=== PATIENT | male | born 1950 | race Caucasian/White ===

== ENCOUNTER 2018-12-13 11:38 | Emergency (ER) | payer MEDICARE, SELFPAY ==
[2018-12-13 11:39] VITALS: BP 148/65; PULSE 92; RESP 17; TEMP 36.2; O2SAT 98; BMI 26.6
--- NOTE | 2018-12-13 12:05 | RAD_ITS ---
STUDY: X-RAY - LEFT HAND REASON FOR EXAM: Male, 68 years old. Laceration of the third and fourth digits. TECHNIQUE: 3 view(s) of the hand. COMPARISON: None. FINDINGS: Normal radiocarpal articulation. Normal distal radioulnar joint. Normal visualized carpal bones. Normal carpal articulations Normal carpometacarpal articulation of the thumb. Normal second through fifth carpometacarpal joints. Normal metacarpi. Normal metacarpophalangeal joint of the thumb. Normal interphalangeal joint of the thumb. Normal proximal and distal phalanges of the thumb. Normal metacarpophalangeal joints of the second through fifth fingers. Comminuted nondisplaced fracture of the distal portion of the distal pharynx of the fourth digit. Normal phalanges of the second through fifth fingers. Soft tissue laceration overlying the distal fourth digit. RAD/Hand Min 3 Views IMPRESSION: Comminuted nondisplaced fracture of the distal aspect of the distal phalanx of the fourth digit with overlying soft tissue laceration. No radiopaque foreign body is seen. Electronically Signed: Darell Mcclelland, at 12:22 EDT , Service support ,
[2018-12-13] MEDS: Cefazolin 1 GM/50 ML BAG IV (12:16)
--- NOTE | 2018-12-13 12:18 | ED.VIS.INJ ---
History of Present Illness Chief Complaint: Laceration Detail of Chief Complaint: Left index and ring finger Informant: Patient Onset: Today Mechanism/Context: Blunt Injury - Table saw injury Quality of Pain: Dull, Aching Location: Left index and ring finger Current Severity: Mild Maximum Severity: Moderate Worsened by: Movement and palpation Relieved by: Nothing Length of loss of consciousness: Not applicable Narrative: Patient is a 68-year-old [id number] male who was cutting wood to finish a desk he purchased. He went to grab the wood and cut his left index and left ring finger. He has full function. He had significant bleeding from the ring finger. He has no other complaints. Tetanus Immunization: >10 years Prior similar symptoms: No Recent Illness/Hospitalization: No - Past Medical History (1) No significant past medical history Status: Acute Past Medical History - Allergies and Home Meds Allergies/Adverse Reactions: Allergies No Known Allergies Allergy (Verified 12/13/18 11:39) Primary Care Physician: Mani Corona DO [Primary Care Provider] - Prior records reviewed: No Past Medical History: None Surgical History: noncontributory Lives: Spouse/ Significant Other Smoking Status: Never smoker Alcohol: None Drugs: None Review of Systems General: Denies: Chills, Fever, Malaise, Sweats Musculoskeletal: Reports: Extremity Pain. Denies: Myalgias, Arthralgias, Neck pain, Back pain, Swelling Neurological: Reports: Numbness. Denies: Weakness, Parasthesia Hematologic: Denies: Easy bruising, Easy bleeding Allergy: Denies: Uticaria, Swelling of the mouth Physical Exam Vital Signs/Narrative: Vital Signs Temp Pulse Resp BP Pulse Ox 12/13/18 11:39 97.1 F L 92 17 148/65 H 98 Inital Vital Signs reviewed: Yes General: Well nourished, Well developed Head: Normocephalic, Atraumatic Eyes: Perrl, EOMI. Negative for: Pale conjunctiva, Scleral icterus Cardiovascular: Regular rate, Regular rhythm, No murmurs, Normal S1, Normal S2 Respiratory: No distress, CTA bilaterally Extremeties: There is a laceration to the ulnar side of the left index finger distal to the DIP joint. Two-point discrimination is abnormal. The extensor indicies tendon is intact. The flexor digitorum superficialis and flexor digitorum profundus are intact. Capillary refill is normal. There is no injury to the nailbed. There is also an injury to the ulnar side of the left ring finger with avulsed tissue involving the nailbed and nail. Abnormal two-point semination distal of the injury. There is no subungual hematoma noted. The extensor commonness tendon and the flexor digitorum fundus and the flexor digitorum superficialis tendon are intact. Skin: Normal color, No rash, Trauma - Described under extremity portion of the physical exam. Neurological: Alert, Oriented x3, Cranial nerves II-XII grossly intact, Normal Strength. Negative for: Normal Sensation Psychological: Normal affect, Normal Mood - Glascow Coma Scale Eye Opening: Spontaneous Motor: Obeys Commands Verbal: Oriented Coma Scale Total: 15 Diagnostic/Tx/Re-eval Chest X-Ray - ED: Read by ED Physician, - - View x-ray of the left hand was obtained and there is a comminuted minimally displaced distal phalanx fracture of the left ring finger. There is also avulsed tissue noted. 12/13/18 12:05 Hand Min 3 Views [RAD] Stat - Medical Decision Making Patient received a gram of Ancef for open distal phalanx fracture. The digits were anesthetized with 1% lidocaine by digital block. A 1.5 cm laceration distal left index finger. Wound was irrigated with 100 cc of normal saline. The wound was closed using 5-0 Ethilon. Total of 3 stitches were placed. A portion of the nail was removed to expose the nailbed left ring finger. There is significant amount of tissue loss. The skin was closed using 5-0 Ethilon. One stitch was placed to approximate the nailbed and reduce space. Procedures Procedure(s): Repair of laceration and nailbed left index and left ring finger respectively. Procedure was previously described. Patient was referred to Dr. Nigel Daniels for follow-up. ED Disposition - Plan for ED Patient: Diagnosis: Open fracture of distal phalanx of left hand, Laceration of index finger of left hand without complication Instructions: LACERATION, Hand, FRACTURE, Finger (Open) Prescriptions: Cephalexin [Keflex] 500 mg PO 4X/DAY #14 cap Prescription Printed Referrals: aMni Corona DO [Primary Care Provider] - Danny Daniels MD [STAFF PHYSICIAN] - 2 Days for wound check
[2018-12-13] MEDS: Diphth,Pertuss(Acell),Tet Vac 0.5 ML Vial IM (12:39)
[2018-12-13 14:46] VITALS: BP 155/90; PULSE 81; RESP 17
== END 2018-12-13 14:47 | disposition home or self-care (01) ==
PROVIDERS: Emergency Provider Emergency Medicine; Family Provider Student in an Organized Health Care Education/Training Program; PCP Student in an Organized Health Care Education/Training Program
DX: S62.635B Displaced fracture of distal phalanx of left ring finger, initial encounter for open fracture (principal); S61.211A Laceration without foreign body of left index finger without damage to nail, initial encounter; W29.3XXA Contact with powered garden and outdoor hand tools and machinery, initial encounter; Y93.89 Activity, other specified; Y92.009 Unspecified place in unspecified non-institutional (private) residence as the place of occurrence of the external cause; Y99.8 Other external cause status
CPT/HCPCS: 11760; 12001; 73130; 90715; 96365; 96366; 99284; J7050; A4216

== ENCOUNTER 2018-12-14 12:34 | Emergency (ER) | payer MEDICARE, SELFPAY ==
[2018-12-13 11:39] VITALS: BMI 26.6
[2018-12-14 12:35] VITALS: BP 164/90; PULSE 85; RESP 18; TEMP 36.6; O2SAT 99; BMI 26.3
--- NOTE | 2018-12-14 13:04 | ED.VIS.GEN ---
History of Present Illness Chief Complaint: Wound Check Informant: Patient Onset: Yesterday Context: Gradual Onset Timing: Continuous Current Severity: Moderate Maximum Severity: Moderate Narrative: The patient presents for wound check. Patient was seen here yesterday. At that point, he had a laceration repaired of his second and fourth digit. He has been on antibiotics. He states he went to take down the dressing, but it had stuck and he started to bleed again. He states the bleeding has stopped, but he wanted to be evaluated. He denies any other medical history. Prior similar symptoms: Yes Past Medical History - Allergies and Home Meds Allergies/Adverse Reactions: Allergies No Known Allergies Allergy (Verified 12/14/18 12:37) Primary Care Physician: Mani Corona DO [Primary Care Provider] - Prior records reviewed: Yes Past Medical History: - Surgical History: noncontributory Smoking Status: Never smoker Review of Systems General: Denies: Chills, Fever, Sweats Eyes: Denies: Visual changes - bilaterally, Diplopia ENT: Denies: Rhinorrhea, Sore throat Cardiovascular: Denies: Chest pain, Palpitations Respiratory: Denies: Dyspnea, Cough, Dyspnea on exertion Gastrointestinal: Denies: Abdominal pain, Nausea, Vomiting, Diarrhea, Melena, Hematochezia Genitourinary: Denies: Dysuria, Hematuria, Frequency Musculoskeletal: Denies: Back pain, Extremity Pain Skin: Denies: Rash, Wounds Neurological: Denies: Headache, Weakness, Numbness Physical Exam Vital Signs/Narrative: Vital Signs Temp Pulse Resp BP Pulse Ox 12/14/18 12:35 97.9 F 85 18 164/90 H 99 Inital Vital Signs reviewed: Yes General: Well nourished, Well developed, No Acute Distress Head: Normocephalic, Atraumatic Eyes: Perrl, EOMI ENT: Moist mucous membranes, No rhinorrhea Neck: Supple, Nontender Cardiovascular: Regular rate, Regular rhythm, No murmurs Respiratory: No distress, CTA bilaterally, Chest nontender Abdomen: Soft, Nontender, Nondistended, Normal bowel sounds Back: Nontender, Normal Inspection Extremities: Nontender, No edema, - - The wounds are well approximated. There is no active bleeding. They were cleaned and dressed. Skin: Normal color, No rash Neurological: Alert, Oriented x3, Cranial nerves II-XII grossly intact, Normal Strength, Normal Sensation Psychological: Normal affect, Normal Mood Diagnostic/Tx/Re-eval - Medical Decision Making The patient's wounds are well-appearing. There is no active bleeding. They are cleaned and dressed. He was counseled on continuing local wound care. He will be discharged home. Impression 1. Wound check ED Disposition - Plan for ED Patient: Instructions: POST OP WOUND CHECK, Bleeding Referrals: Mani Corona DO [Primary Care Provider] -
== END 2018-12-14 13:28 | disposition home or self-care (01) ==
LOC: ED 13:16
PROVIDERS: Emergency Provider Emergency Medicine; Family Provider Student in an Organized Health Care Education/Training Program; PCP Student in an Organized Health Care Education/Training Program
DX: S61.218D Laceration without foreign body of other finger without damage to nail, subsequent encounter (principal); Z48.00 Encounter for change or removal of nonsurgical wound dressing; W45.8XXD Other foreign body or object entering through skin, subsequent encounter
CPT/HCPCS: 99282

== ENCOUNTER 2023-09-28 19:13 | Emergency (ER) | payer MEDICARE, SELFPAY ==
[2023-09-28 19:15] VITALS: BP 151/77; PULSE 55; RESP 16; TEMP 36.7; O2SAT 98; BMI 25.7
--- NOTE | 2023-09-28 19:50 | EX.ED.GENINJ ---
HPI History of Present Illness Chief Complaint: Head Injury [facility] Medical History (Updated 09/28/23 @ 19:38 by Amna King) Vitamin D deficiency PAD (peripheral artery disease) Primary osteoarthritis Mood change Loose stools Situational depression Fatigue Short-term memory loss Spasm of lumbar paraspinous muscle Dyslipidemia Special screening for malignant neoplasm of colon Impaired fasting blood sugar Pure hypercholesterolemia Hypokalemia High grade prostatic intraepithelial neoplasia Elevated PSA BPH (benign prostatic hyperplasia) Trigger finger Hyperlipidemia Hypertension Alzheimer disease Home Medications ?Medication ?Instructions ?Recorded ?Last Taken ?Type Potassium Chloride 50 meq PO DAILY 12/13/18 Unknown History amlodipine 10 mg tablet 10 mg PO DAILY 12/13/18 Unknown History aspirin 81 mg tablet,delayed 81 mg PO DAILY 12/13/18 Unknown History release atorvastatin 10 mg tablet 10 mg PO DAILY 12/13/18 Unknown History losartan 100 1 tab PO QHS 12/13/18 Unknown History mg-hydrochlorothiazide 25 mg tablet donepezil 10 mg tablet 10 mg PO DAILY 09/28/23 Unknown History memantine 7 mg capsule 7 mg PO DAILY 09/28/23 Unknown History sprinkle,extended release 24hr potassium chloride 10 mEq 10 meq PO DAILY 09/28/23 Unknown History tablet,extended release potassium chloride 20 mEq 20 meq PO BID 09/28/23 Unknown History tablet,extended release(part/cryst) sertraline 100 mg tablet 100 mg PO DAILY 09/28/23 Unknown History Allergy/AdvReac Type Severity Reaction Status Date / Time No Known Allergies Allergy Verified 09/28/23 19:17 Social History Smoking Status: Never smoker EXAM Physical Exam Const Vital Signs: 09/28/23 19:15 09/28/23 19:39 09/28/23 22:06 Temperature 98.1 F 98.0 F Temperature Source Temporal Pulse Rate 55 L 65 Respiratory Rate 16 18 Respiratory Effort Normal Non-Labored Respiratory Depth Normal Respiratory Pattern Normal Blood Pressure 151/77 H 146/90 H Blood Pressure Mean 101 108 Pulse Ox 98 97 Oxygen Delivery Method Room Air Room Air MDM MDM MDM Narrative Medical decision making narrative: HISTORY OF PRESENT ILLNESS: 73-year-old male presents with fall and mild laceration to forehead. He states he was taking a shower when he turned around and his head collided with a soap dish prior to arrival. Notes no loss of conscious or vomiting. Notes he presented for evaluation secondary to his 's concern. Denies any focal numbness weakness or loss of sensation. Denies taking blood thinners. Denies any other injuries or falls. REVIEW OF SYSTEMS: Pertinent positives: Laceration, head injury Pertinent negatives: Vomiting, loss of consciousness PHYSICAL EXAM: Nursing triage notes reviewed, Vital signs reviewed Primary Survey Airway: Intact Breathing: Bilateral breath sounds Circulation: Palpable bilateral femorals, Palpable bilateral radial, Palpable bilateral DP and Palpable bilateral PT Disability / Spine precautions GCS Score: Eye Openin Verbal Response: 5 Motor Response: 6 Secondary Survey Constitutional: Please see MDM Head: Small bruise noted to the midline of the frontal bone midface stable, NO jaw malocclusion, No Cephalohematoma, and No Lacerations noted Eye: Pupils equal round and reactive to light, Extraocular muscles intact and No periorbital ecchymosis or stepoff, no evidence of entrapment ENT: Oropharynx clear, no lacerations, no hemotympanum, no raccoon eyes or apple sign Cervical spine / Neck: No cervical spine bony tenderness, crepitance, or stepoff deformity Trachea midline Lungs: Clear to auscultation, No asymmetric rise and No crepitus, no flail chest Cardiac: Regular rate and rhythm and No murmurs Abdomen: Soft, Nontender and No rebound Pelvis: Pelvis stable to compression : No evidence of genital injury Back: No midline bony tenderness to thoracic/lumbar/sacral spines Neuro: At baseline, intact strength and sensation in bilateral upper and lower extremities. 2+ patellar reflexes bilaterally. Extremities: NO gross Deformities Psych: Normal affect Nursing triage notes reviewed, Vital signs reviewed MEDICAL DECISION MAKING: Chief Complaint: Head injury, laceration External records reviewed: Imaging reviewed: There is advanced imaging of the head Factors affecting care: Peripheral artery disease, hyperlipidemia, hypertension, Alzheimer disease [facility] Narrative: Patient was hemodynamically stable, afebrile and nontoxic-appearing. Exam with small bruise noted to the head. There were no focal neurologic deficits. I considered the following differential diagnosis: ICH, concussion ALL IMAGES (IF OBTAINED) HAVE BEEN PERSONALLY REVIEWED AND INTERPRETED BY MYSELF. CT scan head was negative. Repeat trauma exam revealed no new injuries. Patient is appropriate discharge home. Concussion precautions were given. Strict return precautions were discussed. Follow-up arranged. The patient and/or family, caregivers express understanding. The patient and/or family, caregivers agrees with the plan. Shared decision making: I will have a discussion with the patient and or visitors regarding risk/benefits of further testing or admission. They will be made aware of of the risk/benefits inherent in this decision they will be given the opportunity to voice understanding. Total critical care time today provided was at least 0 minutes. This excludes separately billable procedures. Critical care time (if documented) is secondary to the patient having high probability of clinically significant/life threatening deterioration in the patient's condition which required my urgent intervention. Impression: 1. Closed head injury 2. Concussion Dispo: Discharge home This note was generated with [employer] dictation software. It may contain incorrect words, spelling, and punctuation that were not noted in review of the chart prior to signing. Radiography Diagnostic Testing: Clinical Impression(s) from Imaging Studies Brain CT 09/28/23 20:01 IMPRESSION: 1. Mild mid to left of midline frontal soft tissue swelling noted. No demonstrated fracture or pneumocephalus or subdural hemorrhage. 2. Chronic involutional changes of the brain. Electronically Signed: Gurdeep Mazariegos MD at 20:39 EDT Reading Location ID and State: [facility] / [place] , Service support , Discharge Plan Triage Chief Complaint: Head Injury ED Provider: [facility] Dx/Rx/DC Orders Instructions: ED Concussion Prescriptions: No Action atorvastatin 10 MG tablet 10 mg PO DAILY aspirin 81 MG tablet,delayed release (DR/EC) 81 mg PO DAILY losartan-hydrochlorothiazide 1 EACH tablet 1 tab PO QHS amlodipine 10 MG tablet 10 mg PO DAILY Potassium Chloride 20 MEQ Tab.Er.Prt 50 meq PO DAILY Patient Comments: pt takes 2 20 meq and 1 10 meq to make 50 meq total donepezil 10 mg tablet 10 mg PO DAILY sertraline 100 mg tablet 100 mg PO DAILY potassium chloride 10 mEq tablet extended release 10 meq PO DAILY potassium chloride 20 mEq tablet,ER particles/crystals 20 meq PO BID memantine 7 mg capsule,sprinkle,ER 24hr 7 mg PO DAILY Primary Care Provider: Mani Corona Referrals: Mani Corona DO [Primary Care Provider] - Activity Restrictions/Additional Instructions: Thank you for trusting us with your care today! The CT scan of your brain was negative for acute intracranial pathology such as bleeding in the brain. Please take Tylenol (2 pills, 650 mg), ibuprofen (2 pills, 400 mg) every 6 hours as needed for pain and fever control. Please return to the emergency department if your symptoms change or worsen. Specifically develop severe headache, vomiting, if you lose consciousness about loss of movement or sensation in your arms and legs. Please follow with your primary care physician for further outpatient evaluation and management. Print Language: Ukrainian Disposition Disposition: Home, Self Care Discharge Date/Time: 09/28/23 22:07
--- NOTE | 2023-09-28 20:01 | CT_ITS ---
STUDY: CT BRAIN WITHOUT CONTRAST REASON FOR EXAM: Male, 73 years old. hit head on shower, lac on forehead, hx htn RADIATION DOSAGE (If Supplied By Facility): CTDIvol = ( 44.99 ) mGy, DLP = ( 812.98 ) mGycm TECHNIQUE: Transaxial CT imaging of the brain was performed without administration of intravenous contrast material. Individualized dose optimization techniques were used for this CT. COMPARISON: None. FINDINGS: Mild mid to left of midline frontal soft tissue swelling noted. No demonstrated fracture or pneumocephalus or subdural hemorrhage. Normal calvarium. There is mild cerebral atrophy with widening of the extra-axial spaces and ventricular dilatation. There are areas of decreased attenuation within the white matter tracts of the supratentorial brain, consistent with microvascular disease changes. Normal basal ganglia and thalami. Normal brainstem. Normal cerebellum. There is no intracranial hemorrhage. There are no findings of an acute ischemic infarction. Moderate-sized left maxillary mucus retention cyst noted. CT/Brain/Head without Contrast IMPRESSION: 1. Mild mid to left of midline frontal soft tissue swelling noted. No demonstrated fracture or pneumocephalus or subdural hemorrhage. 2. Chronic involutional changes of the brain. Electronically Signed: Gurdeep Mazariegos MD at 20:39 EDT ,
[2023-09-28 22:06] VITALS: BP 146/90; PULSE 65; RESP 18; TEMP 36.7; O2SAT 97
== END 2023-09-28 22:07 | disposition home or self-care (01) ==
PROVIDERS: Emergency Provider Emergency Medicine; PCP Student in an Organized Health Care Education/Training Program; Visit Provider Emergency Medicine
DX: S06.0X0A Concussion without loss of consciousness, initial encounter (principal); G30.9 Alzheimer's disease, unspecified; E78.00 Pure hypercholesterolemia, unspecified; I73.9 Peripheral vascular disease, unspecified; I10 Essential (primary) hypertension; Z79.899 Other long term (current) drug therapy; W18.2XXA Fall in (into) shower or empty bathtub, initial encounter
CPT/HCPCS: 70450; 99282

== ENCOUNTER 2024-03-03 11:08 | Emergency (ER) | payer MEDICARE, SELFPAY ==
[2024-03-03 11:08] VITALS: BP 147/69; PULSE 66; RESP 16; TEMP 37.1; O2SAT 98; BMI 25.9
--- NOTE | 2024-03-03 11:40 | CT_ITS ---
INDICATION: Trauma EXAMINATION: CT BRAIN - CT Head or Brain W/O Contrast Injection TECHNIQUE: Multiple axial images were obtained of the head without intravenous contrast. The protocol utilizes one or more of the following dose reduction techniques: automated exposure control, adjustment of mA and/or kV according to patient size,and/or use of iterative reconstruction technique. IV Contrast dosage and agent: None. RADIATION DOSAGE (If Supplied By Facility): CTDIvol = ( 44.99 ) mGy, DLP = ( 846.73 ) mGycm COMPARISON: No relevant prior comparison study available FINDINGS: BRAIN PARENCHYMA: No intra- or extra-axial hemorrhage. No evidence of acute infarct. No intracranial mass or mass effect. There is preservation of the bey/white matter interface. Posterior fossa structures are unremarkable. CSF SPACES: Appropriate for age. No hydrocephalus. Basal cisterns are patent. CALVARIUM, SKULL BASE, PARANASAL SINUSES AND MASTOID AIR CELLS: There are air-fluid levels within the visualized maxillary sinuses consistent with a history of sinusitis. No discrete lytic or blastic abnormalities. There is a subcutaneous hematoma overlying the left posterior calvarium. ORBITS: Both globes, extraocular muscles, optic nerves and retrobulbar fat appear unremarkable. ASPECTS Score for Acute Strokes: 10 CT/Brain/Head without Contrast IMPRESSION: No acute intracranial process. Partial opacification of the visualized maxillary sinuses consistent with a history of sinusitis. Subcutaneous hematoma overlying the left posterior calvarium. Electronically Signed: Ethel Del Rio MD at 12:28 EST ,
--- NOTE | 2024-03-03 11:40 | CT_ITS ---
INDICATION: Trauma EXAMINATION: CT CERVICAL SPINE - CT Spine Cervical W/O Contrast Injection TECHNIQUE: Helically acquired images were obtained of the cervical spine. 2D reformatted images were reviewed. The protocol utilizes one or more of the following dose reduction techniques: automated exposure control, adjustment of mA and/or kV according to patient size,and/or use of iterative reconstruction technique. IV Contrast dosage and agent: None. RADIATION DOSAGE (If Supplied By Facility): CTDIvol = ( 24.34 ) mGy, DLP = ( 515.20 ) mGycm COMPARISON: No relevant prior comparison study available FINDINGS: VERTEBRAE: No fracture or traumatic subluxation. No discrete lytic or blastic abnormality. There is multilevel endplate spondylosis and facet hypertrophy. Normal craniocervical junction and cervicothoracic junction. DISCS and SPINAL CANAL: There is multilevel degenerative disc disease. No critical stenosis. NECK SOFT TISSUES: No prevertebral soft tissue swelling. There is no cervical adenopathy. LUNG APICES: Clear. CT/Spine Cervical without Contras IMPRESSION: Multilevel degenerative changes. Electronically Signed: Ethel Del Rio MD at 12:31 EST ,
--- NOTE | 2024-03-03 11:49 | EX.ED.GENINJ ---
HPI History of Present Illness Chief Complaint: Head Injury Narrative Narrative: Chief complaint and HPI: Closed head injury. 73-year-old male with past medical history of HTN, early dementia, HLD presents for evaluation of close head injury after mechanical fall down the steps in his basement. He hit the back of his head on wood steps. Large hematoma to the left posterior scalp. No LOC. Not on blood thinners. Patient was able to ambulate after the fall. He denies any headache, vision changes, facial patient pain, neck pain, shortness of breath, chest pain, abdominal pain, nausea, vomiting, dysuria. Unknown if up-to-date on tetanus. Review of systems: See HPI Medications: As listed on the chart Allergies: As listed on the chart PFSH: Per chart Vital signs: As listed on the chart. Reviewed. Physical exam: Gen: A&O x3, NAD Head: Normocephalic, large hematoma to the left posterior scalp with abrasion-no laceration that needs repaired Eyes: No sclera icterus, conjunctiva clear, PERRL, EOMI ENT: TMs clear BL, moist mucous membranes, no swelling/lacerations/blood in the mouth or the nares, No nasal septal hematoma, no facial tenderness Neck: Trachea midline, No JVD, Nontender CV: RRR, no murmurs, no chest wall TTP Resp: Lungs CTA BL, no w/r/c GI: Abd soft, non-distended, non-tender, no r/r/g Musc: Full ROM, no deformity, no spinal TTP, no espinoza step-offs Skin: Warm, dry, intact Neuro: Alert, oriented, grossly intact, sensation intact, GCS 15 Psych: Cooperative, appropriate mood and affect [facility] Medical History (Updated 09/28/23 @ 19:38 by Amna King) Vitamin D deficiency PAD (peripheral artery disease) Primary osteoarthritis Mood change Loose stools Situational depression Fatigue Short-term memory loss Spasm of lumbar paraspinous muscle Dyslipidemia Special screening for malignant neoplasm of colon Impaired fasting blood sugar Pure hypercholesterolemia Hypokalemia High grade prostatic intraepithelial neoplasia Elevated PSA BPH (benign prostatic hyperplasia) Trigger finger Hyperlipidemia Hypertension Alzheimer disease Home Medications ?Medication ?Instructions ?Recorded ?Last Taken ?Type Potassium Chloride 50 meq PO DAILY 12/13/18 Unknown History amlodipine 10 mg tablet 10 mg PO DAILY 12/13/18 Unknown History aspirin 81 mg tablet,delayed 81 mg PO DAILY 12/13/18 Unknown History release atorvastatin 10 mg tablet 10 mg PO DAILY 12/13/18 Unknown History losartan 100 1 tab PO QHS 12/13/18 Unknown History mg-hydrochlorothiazide 25 mg tablet donepezil 10 mg tablet 10 mg PO DAILY 09/28/23 Unknown History memantine 7 mg capsule 7 mg PO DAILY 09/28/23 Unknown History sprinkle,extended release 24hr potassium chloride 10 mEq 10 meq PO DAILY 09/28/23 Unknown History tablet,extended release potassium chloride 20 mEq 20 meq PO BID 09/28/23 Unknown History tablet,extended release(part/cryst) sertraline 100 mg tablet 100 mg PO DAILY 09/28/23 Unknown History Allergy/AdvReac Type Severity Reaction Status Date / Time No Known Allergies Allergy Verified 03/03/24 11:08 Social History Smoking Status: Never smoker EXAM Physical Exam Const Vital Signs: 03/03/24 11:08 03/03/24 11:08 Temperature 98.7 F Temperature Source Oral Pulse Rate 66 Respiratory Rate 16 Respiratory Effort Normal Non-Labored Respiratory Depth Normal Respiratory Pattern Normal Blood Pressure 147/69 H Blood Pressure Mean 95 Pulse Ox 98 Oxygen Delivery Method Room Air Room Air MDM MDM MDM Narrative Medical decision making narrative: 73-year-old male with past medical history of HTN, early dementia, HLD presents for evaluation of close head injury after mechanical fall down the steps in his basement. Patient has scalp hematoma with abrasion. No laceration needs repaired. Patient unsure if tetanus is updated. On chart review, patient had a tetanus in 2019. Tetanus is up-to-date. Given that this was purely mechanical fall I do not think any laboratory workup is needed at this time. CT head and neck ordered. Differential diagnosis includes but is not limited to contusion, concussion, fracture, intracranial bleed. CT head and cervical spine without any fracture or acute traumatic injury. Patient is stable to discharge home. Monitor for signs of and caution. Follow-up with PCP. Motrin Tylenol as needed for pain. Return precautions explained. Impression: 1. Closed head injury 2. Scalp contusion 3. Mechanical fall Radiography Diagnostic Testing: Clinical Impression(s) from Imaging Studies Brain CT 03/03/24 11:40 IMPRESSION: No acute intracranial process. Partial opacification of the visualized maxillary sinuses consistent with a history of sinusitis. Subcutaneous hematoma overlying the left posterior calvarium. Electronically Signed: Ethel Del Rio MD at 12:28 EST , Cervical Spine CT 03/03/24 11:40 IMPRESSION: Multilevel degenerative changes. Electronically Signed: Ethel Del Rio MD at 12:31 EST , Discharge Plan Triage Chief Complaint: Head Injury ED Provider: Walter Michelle Dx/Rx/DC Orders Instructions: ED Scalp Contusion, ED Head Injury (Adult) Prescriptions: No Action atorvastatin 10 MG tablet 10 mg PO DAILY aspirin 81 MG tablet,delayed release (DR/EC) 81 mg PO DAILY losartan-hydrochlorothiazide 1 EACH tablet 1 tab PO QHS amlodipine 10 MG tablet 10 mg PO DAILY Potassium Chloride 20 MEQ Tab.Er.Prt 50 meq PO DAILY Patient Comments: pt takes 2 20 meq and 1 10 meq to make 50 meq total donepezil 10 mg tablet 10 mg PO DAILY sertraline 100 mg tablet 100 mg PO DAILY potassium chloride 10 mEq tablet extended release 10 meq PO DAILY potassium chloride 20 mEq tablet,ER particles/crystals 20 meq PO BID memantine 7 mg capsule,sprinkle,ER 24hr 7 mg PO DAILY Primary Care Provider: Mani Corona Referrals: Mani Corona DO [Primary Care Provider] - 3-5 Days Activity Restrictions/Additional Instructions: Tylenol Motrin as needed for pain. Follow-up with PCP. Monitor for signs of concussion. Print Language: Indonesian Disposition Disposition: Home, Self Care
[2024-03-03 12:46] VITALS: BP 145/76; PULSE 81; RESP 14; TEMP 36.6; O2SAT 98
== END 2024-03-03 12:46 | disposition home or self-care (01) ==
PROVIDERS: Emergency Provider Surgery; PCP Student in an Organized Health Care Education/Training Program; Visit Provider Surgery
DX: S00.03XA Contusion of scalp, initial encounter (principal); I10 Essential (primary) hypertension; E78.00 Pure hypercholesterolemia, unspecified; S00.01XA Abrasion of scalp, initial encounter; W10.9XXA Fall (on) (from) unspecified stairs and steps, initial encounter; S09.90XA Unspecified injury of head, initial encounter
CPT/HCPCS: 70450; 72125; 99284

== ENCOUNTER 2024-05-20 08:00 | Outpatient (RCR) | payer MEDICARE, SELFPAY ==
--- NOTE | 2024-04-19 15:20 | HP.PTEVAL_ITS ---
Patient's Visit Information Visit Information Visit Information: JUVENAL REYES is a 73 year old M referred to Physical Therapy by BRITTANI Naidu with a diagnosis of LBP with sciatica. Date of Evaluation: 04/19/24 Physical Therapist: Williams Kelly, PT, ATC Visit Plan Frequency: 2-3x /Week Duration: 4 Weeks Plan: Postural edu, SKTC/DKTC, core stab ex's, Gait training, nustep, and HEP Subjective Subjective: Pt reports he fell approximately 3 weeks ago and injured his back. Pt reports he has had constant pain and R LE radiculopathy which extends to his R ankle. Pt notes he did have x-rays of his LB in the ER which revealed degenerative changes throughout his entire L/S. Pt reports he has difficulty with sleeping at this time secondary to pain. Pt reports he experiences increased pain with ambulation, prolonged sitting and lying down. Pt reports lying down on a hard surface helps. Pt notes getting into bed is also very difficult secondary to the bed being so soft. Pt denies PMHx of LBP of this significance. Pt reports he is scheduled to get an injection later today. Pt reports his pain is ranging from 3-5/10 at this time. Pain LBP: Pain Intensity (Out of 10): 3 Pain Intensity Range: 5 Objective Objective: Neuro: B LE sensation is WNL to light touch. B patellar reflex= 2/3 MMT: R LE is grossly 4/5 throughout while L LE is 5/5 throughout ROM: Pt is severely limited with L/S extension. All other motions are WNL at this time. Repeated movements: RAI and prone prop progression increased LBP and R LE radiculopathy. SKTC and DKTC decreased pain Balance/Special Test Scores Oswestry Low Back Score: 27 Goals Goal 1:: Decrease LBP x 50% to aid with sleep Goal Time Frame: 4-6 Weeks Goal 2:: Decrease the frequency and intensity of R LE radiculopathy x 50% to aid with ambulation Goal Time Frame: 4-6 Weeks Goal 3:: Pt will be able to ambulate 300 feet without having to stop secondary to LBP Goal Time Frame: 4-6 Weeks Goal 4:: I with HEP Goal Time Frame: 4-6 Weeks Rehabilitation Potential Physical Therapy Diagnosis: Pt has LBP, R LE radiculopathy, and limited L/S ROM secondary to degenerative changes in the L/S Rehabilitation Potential: Good Anticipated Interventions Patient/Client Instruction: Educate patient on: Condition and Plan of Care For the Purpose of:: To improve self management Therapeutic Exercise to Include: Strength training, Endurance training, Body mechanics, Postural training, Gait and locomotor training and Dynamic Lumbar Stabilization For the Purpose of:: To decrease pain, To improve muscle performance and motor function and To increase tolerance to activity/condition/position Text: Thank you for the opportunity to evaluate your patient. For Medicare and Medicare HMO plans, please review the plan of care and approve it. It will need to be FAXED BACK to us at [phone] for Medicare purposes. For Medicare only, by signing this I certify the plan of care. Please let me know if there are questions or concerns regarding this plan of care. Physician Signature: Date:
--- NOTE | 2024-08-16 16:12 | HP.PT.NRP ---
Patient Information Patient Information: JUVENAL REYES was seen in my office for initial evaluation on 04/19/24. The following Plan of Care was established for this patient: POC Established Initial Frequency: 2-3x /Week Initial Duration: 4 Weeks Anticipated Interventions Patient/Client Instruction: Educate patient on: Condition and Plan of Care For the Purpose of:: To improve self management Therapeutic Exercise to Include: Strength training, Endurance training, Body mechanics, Postural training, Gait and locomotor training and Dynamic Lumbar Stabilization For the Purpose of:: To decrease pain, To improve muscle performance and motor function and To increase tolerance to activity/condition/position Last Seen Last Seen: This patient was last seen in our office . Pertinent comments regarding their Physical therapy will appear below: Pt has not returned to [facility] is greater than 30 days and is discharged at this time. At this point I will be discontinuing this patient from physical therapy. I would be happy to see this patient again in the future if found appropriate by the physician. Thank you! Williams Kelly, PT, ATC Balance/Gait/Functional tests Balance/Special Test Scores Oswestry Low Back Score: 27
== END 2024-05-20 19:00 | disposition home or self-care (01) ==
LOC: PT 08:00
PROVIDERS: PCP Student in an Organized Health Care Education/Training Program; Referring Provider Nurse Practitioner Family; Visit Provider Nurse Practitioner Family
DX: M54.31 Sciatica, right side (principal)
CPT/HCPCS: 97110; 97161